=== PATIENT | male | born 1950 | race Caucasian/White ===

== ENCOUNTER 2019-03-31 14:56 | Emergency (ER) | payer MEDICARE, OTHER ==
--- NOTE | 2019-03-31 15:14 | UC ---
General HPI - HPI Summary HPI Summary: 69 yo male presents accompanied by . Pt tells me that he was feeling well when he woke up. He has a daily routine and took his dog for an hour walk around 0900 as he usually does. When he returned around 1000, he had some low back pain and sat down on the couch and began to eat a muffin. Began to feel chills and that he was shivering. Noticed some general lower and upper backache with a headache. He then took his temperature and found it to be 101.4F. He took naproxen and felt better, but began to feel lightheaded and that his "eyes were lagging" and having trouble "tracking objects". Currently he feels lightheaded and has trouble focusing when he goes from a seated to standing position and with turning his head side to side. He also endorses a frontal headache and pain behind his eyes. Denies sinus symptoms, sore throat, SOB, chest pain, palpitations, abdominal pain, n/v, dysuria. - History of Current Complaint Stated Complaint: BODY ACHES HEADACHE FEVER Time Seen by Provider: 03/31/19 15:13 Hx Obtained From: Patient Onset/Duration: Sudden Onset Onset Severity: Mild Current Severity: Mild Pain Intensity: 3 - Allergy/Home Medications Allergies/Adverse Reactions: Allergies Allergy/AdvReac Type Severity Reaction Status Date / Time Sulfa (Sulfonamide Allergy Hives Verified 03/31/19 15:38 Antibiotics) tamsulosin Allergy Rash Verified 03/31/19 15:38 Home Medications: Home Medications Alfuzosin ER (NF) [Uroxatral (NF)] 10 mg PO DAILY 03/31/19 [History Confirmed ] PMH/Surg Hx/FS Hx/Imm Hx - Additional Past Medical History Additional PMH: CML Endocrine History: Dyslipidemia Cardiovascular History: Hypertension - Surgical History Surgical History: Yes Surgery Procedure, Year, and Place: hernia (left inguinal) 1972; APPENDECTOMY 1999 - Family History Known Family History: Positive: Unknown - Social History Lives: With Family Alcohol Use: None Alcohol Amount: hx of etoh abuse; used to drink 1/5 vodka in two days; 1 glass wine yester Substance Use Type: None Smoking Status (MU): Former Smoker Have You Smoked in the Last Year: No When Did the Patient Quit Smoking/Using Tobacco: quit 2003 Review of Systems All Other Systems Reviewed And Are Negative: Yes Constitutional: Positive: Fever, Chills, Fatigue Skin: Positive: Negative Eyes: Positive: Negative ENT: Positive: Negative Respiratory: Positive: Negative Cardiovascular: Positive: Negative Gastrointestinal: Positive: Negative Genitourinary: Positive: Negative Motor: Positive: Negative Neurovascular: Positive: Negative Musculoskeletal: Positive: Negative Neurological: Positive: Headache Psychological: Positive: Negative Physical Exam - Summary Physical Exam Summary: GENERAL: NAD. WDWN. No pain distress. SKIN: No rashes, sores, ulcers, masses, lesions. HEENT: Head: AT/NC. Eyes: PERRLA. EOM intact. Conjunctiva clear without inflammation or discharge. Ears: Hearing grossly normal. TMs intact, no bulging, erythema, or edema. Nose: Nasal mucosa pink and moist. NTTP maxillary and frontal sinus. Throat: Posterior oropharynx without exudates, erythema, or tonsillar enlargement. Uvula midline. NECK: Supple. Nontender. FROM CHEST: CTAB. No r/r/w. No accessory muscle use. Breathing comfortably and in no distress. CV: RRR. Without m/r/g. Pulses intact. Brisk cap refill. ABDOMEN: Soft. NTTP. Bowel sounds present MSK: FROM in B/L UEs and LEs with symmetric strength. NEURO: A&Ox3. 3 word recall, remote, recent memory, ability to follow 2-step directions, and attention intact. CN: II: Peripheral melton intact. Vision normal. III, IV, : EOMI. No nystagmus. PERRLA. V: Sensations intact and symmetric. Opens mouth and clenches teeth. VII: No facial asymmetry. Forehead wrinkles. Grins, shuts eyes, frowns, puffs cheeks. VIII: Hearing intact to finger rub. IX, X: Swallows and coughs. Uvula midline. XI: Shrugs shoulders. Turns head against resistance. XII: No tongue deviation [id number] are intact. Gait with normal base. Romberg: maintains balance, no pronator drift. Normal speech. No facial drooping. PSYCH: Age appropriate behavior. Triage Information Reviewed: Yes Vital Signs: Vital Signs: Temp Pulse Resp BP Pulse Ox 100.7 F 83 16 120/59 98 03/31/19 15:29 03/31/19 15:29 03/31/19 15:29 03/31/19 15:29 03/31/19 15:29 Laboratory Tests 03/31/19 03/31/19 15:54 16:03 POC Glucose (mg/dL) 123 H POC Urine Color Yellow POC Urine Clarity Clear POC Urine pH 6.5 POC Ur Specif [place] <= 1.005 L POC Urine Protein Negative POC Ur Glucose (UA) Negative POC Urine Ketones Negative POC Urine Blood Negative POC Urine Nitrite Negative POC Urine Bilirubin Negative POC Urine Urobilinogen 0.2 POC U Leukocyte Esteras Negative Vital Signs: Temp Pulse Resp BP Pulse Ox 99.9 F 71 16 114/56 97 03/31/19 16:57 03/31/19 16:57 03/31/19 16:57 03/31/19 16:57 03/31/19 16:57 Vital Signs Reviewed: Yes Re-Evaluation - Re-Evaluation First Eval Re-Evaluation Time: 16:35 Change: Improved Comment: States dizziness is much improved s/p meclizine Course/Dx - Course Course Of Treatment: CXR: IMPRESSION:NO ACTIVE CARDIOPULMONARY DISEASE. CT brain: IMPRESSION: No intracranial mass or hemorrhage is noted. UA negative. Glucose 123. Spoke with Dr. Linares of Oncology regarding case. She tells me that pt's CML related testing has all been very low and nearly undetectable. Recommends testing for the flu and if negative to f/u outpatient with PCP and/or oncology. POC flu negative. At this time pt's exam is normal. His neuro exam is WNL with strong and symmetric strength throughout and his gait is steady and balanced. His workup here has been negative/normal. He was given meclizine in the clinic and reports that his dizziness significantly improved and was only slightly still present. He was also given toradol IM for his headache. Will dc with suspicion of a viral syndrome. Strongly advised that if his symptoms worsen or if he develops new symptoms to be seen in the ED for further eval and likely labwork/further imaging. Advised to schedule a f/u with his PCP tomorrow or friday for a recheck. Pt and voiced understanding and agree with the plan. - Diagnoses Provider Diagnosis: Viral syndrome, Vertigo, Headache Discharge - Sign-Out/Discharge Documenting (check all that apply): Patient Departure All imaging exams completed and their final reports reviewed: Yes - Discharge Plan Condition: Stable Disposition: HOME Patient Education Materials: Vertigo (DC), Acute Headache (DC), Viral Syndrome (ED) Referrals: Jade Ansari MD [Primary Care Provider] - Additional Instructions: If you develop a worsening fever, shortness of breath, chest pain, new or worsening symptoms - please call your PCP or go to the ED immediately. Your work up today has all been normal. I recommend you continue to take tylenol/ibuprofen as directed for your discomfort and schedule a follow up with your PCP in 1-2 days for a recheck of your symptoms. - Billing Disposition and Condition Condition: STABLE Disposition: Home
[2019-03-31] MEDS ORDERED: Meclizine TAB* 12.5 MG PO ONE (15:49)
[2019-03-31] MEDS ORDERED: Ketorolac *IM* INJ* 60 MG/2 ML VIAL IM ONE (16:30)
[2019-03-31 16:47] LABS: Influenza A Molecular NEGATIVE (Negative); Influenza B Molecular NEGATIVE (Negative)
[2019-03-31 16:58] VITALS: BP 114/56
== END 2019-03-31 17:04 | disposition home or self-care (01) ==
LOC: UCEAST 14:56
DX: B34.9 Viral infection, unspecified (principal); R42 Dizziness and giddiness; R51 Headache; M54.5 Low back pain; E78.5 Hyperlipidemia, unspecified; I10 Essential (primary) hypertension; Z88.2 Allergy status to sulfonamides; Z87.891 Personal history of nicotine dependence
CPT/HCPCS: 70450; 71046; 81003; 96372; 99212; A9270-GY; G0463; J1885

== ENCOUNTER 2022-07-05 11:16 | Observation (INO) ==
[~2022-07-05 11:16] MED LIST: Buffered Lidocaine 1% SYRIN 1 ml INTRADERM ONE; Famotidine IV 10 MG/ML 2 ml VIAL (20 mg) IV ONE; Lactated Ringers 1000 ml BAG 1,000 ML IV SCH
[2022-07-05] MEDS ORDERED: ceFAZolin 2 GM PREMIX 2 GM/50 ML BAG ONE (11:36)
[2022-07-05] MEDS ORDERED: Famotidine IV 10 MG/ML 2 ml VIAL (20 mg) ONE (11:36)
[2022-07-05] MEDS ORDERED: Propofol 10 MG/ML 20 ML BTL ONE (13:02)
[2022-07-05] MEDS ORDERED: Lidocaine 2% PF 5 ML VIAL ONE (13:52)
[2022-07-05] MEDS ORDERED: fentaNYL 100 mcg/2 ml 50 MCG/ML VIAL ONE ×3 (13:52→17:32)
[2022-07-05] MEDS ORDERED: Midazolam 2 mg/2 ml VIAL 1 mg/ml 2 ml VIAL (2 mg) ONE (13:52)
[2022-07-05] MEDS ORDERED: Rocuronium 50 mg VIAL 10 mg/ml 5 ml VIAL (50 mg) ONE ×2 (13:52→14:50)
[2022-07-05] MEDS ORDERED: HYDROmorphone 0.5 MG/0.5 ML SYRINGE ONE ×2 (14:51→15:10)
[2022-07-05] MEDS ORDERED: Acetaminophen IV 1 GM/100ML 1,000 MG/100 ML BAG IV ONE (15:50)
[2022-07-05] MEDS ORDERED: Phenylephrine 40 mcg/mL 10mL (400mcg) SYRINGE ONE (16:05)
[2022-07-05] MEDS ORDERED: Lactulose 30 ml UDC PO PRN (16:09)
[2022-07-05] MEDS ORDERED: Ondansetron 4 mg VIAL 2 MG/ML 2 ml VIAL IV PRN (16:09)
[2022-07-05] MEDS ORDERED: Magnesium Hydroxide LIQ 30 ML UDC PO PRN (16:09)
[2022-07-05] MEDS ORDERED: Ondansetron ODT 4 mg TAB 4 MG TAB PO PRN (16:09)
[2022-07-05] MEDS ORDERED: Morphine 2 MG/ML SYRINGE IV PRN (16:09)
[2022-07-05] MEDS ORDERED: ROPIVACAINE 5 MG/ML 30 ML BTL (0.5%) ONE (16:36)
[2022-07-05] MEDS ORDERED: Lactated Ringers 1000 ml BAG 1,000 ML IV SCH (17:00)
[2022-07-05] MEDS ORDERED: HYDROmorphone 1 MG/1 ML SYRINGE ONE (17:07)
[2022-07-05] MEDS ORDERED: Prochlorperazine 5 mg/ml 2 ml VIAL (10 mg) IV PRN (17:10)
[2022-07-05] MEDS: HYDROmorphone 1 MG/1 ML SYRINGE IV PRN ×5 (17:10→17:43)
[2022-07-05] MEDS ORDERED: Naloxone 0.4 mg VIAL 0.4 mg/ml 1 ml VIAL IV PRN (17:10)
[2022-07-05] MEDS: fentaNYL 100 mcg/2 ml 50 MCG/ML VIAL IV PRN ×4 (17:16→18:08)
[2022-07-05] MEDS: ceFAZolin 1 GM ADVAN 1 GM in NS 0.9% 50 ML 50 ML IVPB SCH (19:40)
[2022-07-05] MEDS: Magnesium Hydroxide LIQ 30 ML UDC PO SCH (21:06)
[2022-07-06 06:07] LABS: Hematocrit 34 % (42-52); Hemoglobin 11.3 g/dL (14.0-18.0); Mean Platelet Volume 7.7 fL (7.4-10.4); Platelet Count 200 10^3/uL (150-450)
[2022-07-06] MEDS: ceFAZolin 1 GM ADVAN 1 GM in NS 0.9% 50 ML 50 ML IVPB SCH ×2 (06:40→13:02)
[2022-07-06 06:59] LABS: Calcium 9.1 mg/dL (8.6-10.3); eGFR CKD-EPI 70.2 (>60)
[2022-07-06 07:06] LABS: Potassium 5.2 mmol/L (3.5-5.0)
[2022-07-06] MEDS ORDERED: NILOTINIB 150 MG PO SCH (07:30)
[2022-07-06] MEDS: Magnesium Hydroxide LIQ 30 ML UDC PO SCH (08:46)
[2022-07-06] MEDS ORDERED: Alfuzosin ER 10 mg TAB.ER (NF) 10 MG TAB.ER PO SCH (09:00)
[2022-07-06] MEDS ORDERED: Cholecalciferol (VIT D3) 1,000 unit TAB PO SCH (09:00)
[2022-07-06] MEDS ORDERED: Vitamin THERAPEUTIC TAB PO SCH (09:00)
[2022-07-06] MEDS ORDERED: SODIUM ZIRCONIUM CYCLOSILICATE 5 GM PACKET PO ONE (10:27)
[2022-07-06 11:43] VITALS: BP 134/64
[2022-07-06 14:48] LABS: Calcium 9.1 mg/dL (8.6-10.3); Magnesium 2.2 mg/dL (1.9-2.7); Potassium 4.4 mmol/L (3.5-5.0); eGFR CKD-EPI 73.4 (>60)
== END 2022-07-06 21:02 | disposition home or self-care (01) ==
LOC: AA 11:16 → INTOOBSV 11:16 → SSU 16:09
PROVIDERS: ADMIT Orthopaedic Surgery Adult Reconstructive Orthopaedic Surgery; ATTEND Orthopaedic Surgery Adult Reconstructive Orthopaedic Surgery